=== PATIENT | female | born 1955 | race Caucasian/White ===

== ENCOUNTER → 2020-10-23 | Day surgery (SDC) | payer MEDICARE, BC ==
[~2020-10-23] VITALS: Ht 165.1 cm; Wt 50.0 kg
[~2020-10-23] MED LIST: FLUO20CA16 PO; IV RINGERS,LACTATED 1000ML 1,000 ML IV SCH; LIDOCAINE 2% PF 5 ML VIAL. ONE; PROPOFOL 10 MG/ML (20ML) VIAL. IV ONE
[2020-10-23 07:33] VITALS: BP 125/69
[2020-10-23 10:15] VITALS: BP 99/55
== END | disposition home or self-care (01) ==
LOC: SURG 07:51
PROVIDERS: ATTEND Internal Medicine Gastroenterology
DX: R19.5 Other fecal abnormalities (principal); K63.89 Other specified diseases of intestine; K64.0 First degree hemorrhoids; K63.5 Polyp of colon; K57.30 Diverticulosis of large intestine without perforation or abscess without bleeding; J44.9 Chronic obstructive pulmonary disease, unspecified; F41.9 Anxiety disorder, unspecified; F32.9 Major depressive disorder, single episode, unspecified; Z86.010 Personal history of colon polyps; Z79.899 Other long term (current) drug therapy; Z98.890 Other specified postprocedural states; Z72.89 Other problems related to lifestyle; Z20.822 Contact with and (suspected) exposure to COVID-19
CPT/HCPCS: 45380; 87426; J2704